=== PATIENT | female | born 1990 | race Caucasian/White ===

== ENCOUNTER 2019-06-15 15:30 | Inpatient (IN) | payer OTHER ==
[~2019-06-15] VITALS: Ht 162.6 cm; Wt 66.0 kg
[2019-06-15 13:26] LABS: BASOPHILS % (AUTO) 0.3 % (0.0-5.0); EOSINOPHILS % (AUTO) 1.5 % (0.0-8.0); HEMATOCRIT 36.9 % (36-48); LYMPHOCYTES % (AUTO) 27.1 % (21.0-51.0); MEAN CORPUSCULAR HGB CONC 33.7 g/dL (32.0-36.0); MEAN CORPUSCULAR VOLUME 85.9 fL (79-99); MONOCYTES % (AUTO) 5.1 % (3.0-13.0); NUCLEATED RED BLOOD CELLS 0.1 % (0.0-0.19); PLATELET COUNT (AUTO) 204 K/uL (130-400); RED CELL DISTRIBUTION WIDTH 13.3 % (11.0-15.5); WHITE BLOOD COUNT (AUTO) 5.1 K/uL (4.8-10.8)
[2019-06-15 13:44] LABS: POTASSIUM 4.2 mmol/L (3.5-5.1)
[2019-06-15 13:58] VITALS: BP 100/69
[~2019-06-15 15:30] MED LIST: HYDR-3422 PO; SERT25TA PO; TRAZ-185 PO
[2019-06-18] VITALS (22 sets, daily range): BP systolic 103–123; BP diastolic 46–71
[2019-06-18] MEDS: CEFAZOLIN SODIUM 1 GM VIAL IVP SCH ×2 (06:00→07:20)
[2019-06-18] MEDS ORDERED: LACTATED RINGERS 1000ML 1,000 ML IV ONE (06:25)
[2019-06-18] MEDS ORDERED: DURAMORPH PF1 MG/ML 10ML AMP IV ONE (06:40)
[2019-06-18] MEDS ORDERED: THROMBIN-JMI 20000 UNIT KIT TP ONE (06:41)
[2019-06-18] MEDS ORDERED: BACITRACIN 50,000 UNIT VIAL ONE (06:41)
[2019-06-18] MEDS ORDERED: LIDOCAINE PF 2% 5ML ABBOJECT ONE (06:45)
[2019-06-18] MEDS ORDERED: PROPOFOL 10 MG/ML 20ML VIAL IV ONE (06:45)
[2019-06-18] MEDS ORDERED: DEXAMETHASONE SOD PHOSPHATE 10MG/ML 1ML VIAL ONE ×2 (06:45→06:49)
[2019-06-18] MEDS ORDERED: SUCCINYLCHOLINE 200MG/10ML SYR ONE (06:45)
[2019-06-18] MEDS ORDERED: GLYCOPYRROLATE 1 MG/5 ML SYRINGE ONE (06:46)
[2019-06-18] MEDS ORDERED: ROCURONIUM 10MG/1ML SYR 10 MG/ML ML ONE (06:46)
[2019-06-18] MEDS ORDERED: ONDANSETRON HCL 4 MG/2 ML VIAL ONE (06:46)
[2019-06-18] MEDS ORDERED: MIDAZOLAM HCL 1 MG/ML 2ML VIAL ONE ×2 (06:46→06:47)
[2019-06-18] MEDS ORDERED: NEOSTIGMINE 5MG/5ML SYR IV ONE (06:46)
[2019-06-18] MEDS ORDERED: FENTANYL CITRATE PF 50 MCG/1 ML 2ML VIAL ONE ×2 (06:47→08:00)
[2019-06-18] MEDS: BUPIVACAINE/EPI/PF 0.25% 30ML VIAL IJ SCH ×2 (07:00→09:33)
[2019-06-18] MEDS ORDERED: LACTATED RINGERS 1000ML 1,000 ML IV SCH (09:48)
[2019-06-18] MEDS ORDERED: HYDROXYZINE HCL 50 MG PO PRN (10:00)
[2019-06-18] MEDS ORDERED: HYDROCODONE/ACETAMINOPHEN 5/325 MG TAB PO PRN (10:00)
[2019-06-18] MEDS ORDERED: PROMETHAZINE HCL 25 MG/ML 1ML AMPULE IM PRN (10:00)
[2019-06-18] MEDS ORDERED: SODIUM CHLORIDE 0.9% 10 ML VIAL IVP PRN (10:00)
[2019-06-18] MEDS ORDERED: CEFAZOLIN SODIUM 1 GM VIAL IVP SCH (10:00)
[2019-06-18] MEDS ORDERED: MORPHINE SULFATE 2 MG/ML 1ML SYG IVP PRN (10:00)
[2019-06-18] MEDS: DEXAMETHASONE SOD PHOSPHATE 4 MG/ML 1ML VIAL IVP SCH ×3 (10:00→21:22)
[2019-06-18] MEDS ORDERED: MEPERIDINE-PF 25 MG/ML SYG ONE (10:19)
[2019-06-18] MEDS ORDERED: KETOROLAC TROMETHAMINE 30MG/ML ONE (10:26)
[2019-06-18] MEDS ORDERED: TRAZODONE HCL 50 MG TAB PO SCH (21:00)
[2019-06-18] MEDS ORDERED: SERTRALINE HCL 50 MG TABLET PO SCH (21:00)
[2019-06-19 03:57] VITALS: BP 110/66
[2019-06-19] MEDS: DEXAMETHASONE SOD PHOSPHATE 4 MG/ML 1ML VIAL IVP SCH (04:05)
[2019-06-19 08:01] VITALS: BP 102/52
[2019-06-19] MEDS ORDERED: KETOROLAC TROMETHAMINE 30MG/ML ONE (09:07)
[2019-06-19] MEDS ORDERED: KETOROLAC TROMETHAMINE 30MG/ML IV SCH (09:15)
--- NOTE | 2019-06-19 11:15 | NUR ---
PATIENT WAS D/C WITH TEACH BACK SUCCESSFULLY IV REMOVED CATHETER TIP INTACT INCISION CHANGED, NO SIGNS OF INFECTION NOR BLEEDING NOTED INCISION CLEAN AND DRY PT DENIES SOB OR CHEST PAIN RX GIVEN AND FU APPT ALONG WITH STAPPLE REMOVER AND ENTIRE D/C SUMMARY FAMILY AT BED SIDE
== END 2019-06-19 11:30 | disposition home or self-care (01) | DRG 520 ==
LOC: EDSTATUS 15:30 → DAHIP 06-18 05:57 → 4AH 06-18 10:26
PROVIDERS: ADMIT Neurological Surgery; ATTEND Neurological Surgery
PROC: BR1B1ZZ Fluoroscopy of Lumbosacral Joint using Low Osmolar Contrast (ICD-10-PCS; 2019-06-18)
PROC: 01NB0ZZ Release Lumbar Nerve, Open Approach (ICD-10-PCS; principal; 2019-06-18 07:58)
PROC: 0SB40ZZ Excision of Lumbosacral Disc, Open Approach (ICD-10-PCS; 2019-06-18 07:58)
PROC: 01NR0ZZ Release Sacral Nerve, Open Approach (ICD-10-PCS; 2019-06-18 07:58)
PROC: 4A11X4G Monitoring of Peripheral Nervous Electrical Activity, Intraoperative, External Approach (ICD-10-PCS; 2019-06-18 07:58)
DX: M51.17 Intervertebral disc disorders with radiculopathy, lumbosacral region (principal); F41.9 Anxiety disorder, unspecified
CPT/HCPCS: 36415; 71045; 72020; 80051; 84703; 85025; 93005; A4344; G0378; J0330; J0690; J1100; J1885; J2001; J2175; J2250; J2274; J2405; J2704; J2710; J3010; J3490; J7120

== ENCOUNTER → 2021-06-05 | Outpatient (CLI) | payer OTHER ==
[2021-06-05 12:42] LABS: BASOPHILS % (AUTO) 0.3 % (0.0-5.0); EOSINOPHILS % (AUTO) 1.1 % (0.0-8.0); HEMATOCRIT 36.8 % (36-48); LYMPHOCYTES % (AUTO) 37.8 % (21.0-51.0); MEAN CORPUSCULAR HEMOGLOBIN 27.3 pg (27.0-33.0); MEAN CORPUSCULAR HGB CONC 31.8 g/dL (32.0-36.0); MEAN CORPUSCULAR VOLUME 85.8 fL (79-99); MONOCYTES % (AUTO) 5.4 % (3.0-13.0); NEUTROPHILS % (AUTO) 55.2 % (40.0-77.0); PLATELET COUNT (AUTO) 254 K/uL (130-400); RED BLOOD CELL COUNT(AUTO) 4.29 MIL/uL (4.00-5.50); RED CELL DISTRIBUTION WIDTH 13.2 % (11.0-15.5); WHITE BLOOD COUNT (AUTO) 6.3 K/uL (4.8-10.8)
[2021-06-05 12:55] LABS: APPEARANCE,URINE Clear (CLEAR); BILIRUBIN,URINE Negative (NEGATIVE); COLOR,URINE Yellow (YELLOW); GLUCOSE, URINE (UA) Negative (NEGATIVE); KETONES,URINE Negative (NEGATIVE); LEUKOCYTE ESTERASE ,URINE Negative (NEGATIVE); NITRATE,URINE Negative (NEGATIVE); OCCULT BLOOD,URINE Negative (NEGATIVE); PH,URINE 5.5 (5.0-8.0); PROTEIN,URINE Negative (NEGATIVE); UROBILINOGEN,URINE 0.2 mg/dL (0.2-1.0)
[2021-06-05 13:02] LABS: ALBUMIN 3.8 g/dL (3.5-5.0); BILIRUBIN,TOTAL 0.3 mg/dL (0.2-1.0); CREATININE 0.6 mg/dL (0.5-1.5); POTASSIUM 4.1 mmol/L (3.5-5.1); TOTAL PROTEIN, SERUM 8.4 g/dL (6.0-8.3)
[2021-06-05 13:43] LABS: ERYTHROCYTE SEDIMENTATION RATE 32 MM/HR (0-20)
== END | disposition home or self-care (01) ==
LOC: RAH 11:41
PROVIDERS: ATTEND Internal Medicine
DX: K52.9 Noninfective gastroenteritis and colitis, unspecified (principal); K57.92 Diverticulitis of intestine, part unspecified, without perforation or abscess without bleeding
CPT/HCPCS: 36415; 74176; 80053; 81003; 85025; 85651; 86140

== ENCOUNTER → 2021-08-08 | Outpatient (CLI) | payer OTHER | END | disposition home or self-care (01) | LOC: LAB 07:50 | PROVIDERS: ATTEND Internal Medicine | DX: Z34.90 Encounter for supervision of normal pregnancy, unspecified, unspecified trimester (principal); F41.0 Panic disorder [episodic paroxysmal anxiety] | CPT/HCPCS: 36415; 84703 ==

== ENCOUNTER → 2021-08-30 | Outpatient (CLI) | payer OTHER ==
[2021-08-30 10:16] LABS: BASOPHILS % (AUTO) 0.4 % (0.0-5.0); EOSINOPHILS % (AUTO) 0.6 % (0.0-8.0); HEMATOCRIT 35.4 % (36-48); LYMPHOCYTES % (AUTO) 25.5 % (21.0-51.0); MEAN CORPUSCULAR HEMOGLOBIN 27.3 pg (27.0-33.0); MEAN CORPUSCULAR HGB CONC 33.3 g/dL (32.0-36.0); MEAN CORPUSCULAR VOLUME 81.9 fL (79-99); MONOCYTES % (AUTO) 5.1 % (3.0-13.0); NEUTROPHILS % (AUTO) 68.2 % (40.0-77.0); PLATELET COUNT (AUTO) 238 K/uL (130-400); RED BLOOD CELL COUNT(AUTO) 4.32 MIL/uL (4.00-5.50); RED CELL DISTRIBUTION WIDTH 14.1 % (11.0-15.5); WHITE BLOOD COUNT (AUTO) 5.1 K/uL (4.8-10.8)
[2021-08-30 10:31] LABS: APPEARANCE,URINE Cloudy (CLEAR); BILIRUBIN,URINE Negative (NEGATIVE); COLOR,URINE Yellow (YELLOW); GLUCOSE, URINE (UA) Negative (NEGATIVE); KETONES,URINE Trace mg/dL (NEGATIVE); LEUKOCYTE ESTERASE ,URINE Small (NEGATIVE); NITRATE,URINE Negative (NEGATIVE); OCCULT BLOOD,URINE Negative (NEGATIVE); PH,URINE 7.5 (5.0-8.0); PROTEIN,URINE Trace mg/dL (NEGATIVE)
[2021-08-30 10:45] LABS: BACTERIA,URINE Many /HPF (None Seen); RBC,URINE 0-1 /HPF (0-1); SQUAMOUS EPITHELIAL CELL,UR Moderate /HPF (0-2)
[2021-08-30 12:52] LABS: RAPID PLASMA REAGIN NONREACTIVE (NONREACTIVE)
[2021-08-31 07:14] LABS: HEPATITIS Bs ANTIGEN SCREEN P Negative (Negative)
== END | disposition home or self-care (01) ==
LOC: LAB 08:28
PROVIDERS: ATTEND Obstetrics & Gynecology
DX: Z32.01 Encounter for pregnancy test, result positive (principal)
CPT/HCPCS: 36415; 81001; 85025; 86592; 86701; 86762; 86900; 86901; 87088; 87340; 87390

== ENCOUNTER 2022-04-03 05:54 | Inpatient (IN) | payer MEDICAID, OTHER ==
[~2022-04-03] VITALS: Ht 160 cm; Wt 87.5 kg
[2022-04-03] MEDS ORDERED: LACTATED RINGERS 1000ML 1,000 ML IV PRN (06:30)
[2022-04-03 06:31] LABS: APPEARANCE,URINE CLEAR (CLEAR); BILIRUBIN,URINE NEGATIVE (NEGATIVE); COLOR,URINE YELLOW (YELLOW); GLUCOSE, URINE (UA) NEGATIVE (NEGATIVE); KETONES,URINE NEGATIVE (NEGATIVE); LEUKOCYTE ESTERASE ,URINE TRACE (NEGATIVE); NITRATE,URINE NEGATIVE (NEGATIVE); OCCULT BLOOD,URINE SMALL (NEGATIVE); PROTEIN,URINE NEGATIVE (NEGATIVE); UROBILINOGEN,URINE 0.2 mg/dL (0.2-1.0)
[2022-04-03] MEDS ORDERED: PREN-64 PO (06:52)
[2022-04-03] MEDS ORDERED: CEFAZOLIN SODIUM 1 GM VIAL IVP PRN (07:00)
[2022-04-03] MEDS ORDERED: CALDOLOR 800MG+NS 250ML 250 ML IV PRN (07:00)
[2022-04-03 07:07] LABS: HEMATOCRIT 32.1 % (36-48); MEAN CORPUSCULAR HEMOGLOBIN 27.6 pg (27.0-33.0); MEAN CORPUSCULAR HGB CONC 33.6 g/dL (32.0-36.0); MEAN CORPUSCULAR VOLUME 82.1 fL (79-99); RED BLOOD CELL COUNT(AUTO) 3.91 MIL/uL (4.00-5.50); RED CELL DISTRIBUTION WIDTH 13.7 % (11.0-15.5); WHITE BLOOD COUNT (AUTO) 8.6 K/uL (4.8-10.8)
[2022-04-03] MEDS ORDERED: OXYTOCIN-LR 20 UNITS/1000 ML 1,000 ML IV ONE (07:32)
[2022-04-03 07:44] LABS: BACTERIA,URINE Few /HPF (None Seen); RBC,URINE 0-1 /HPF (0-1); SQUAMOUS EPITHELIAL CELL,UR Few /HPF (0-2)
[2022-04-03] MEDS ORDERED: MORPHINE PF 100MG/10ML AMP IV ONE (08:14)
[2022-04-03] MEDS ORDERED: FENTANYL CITRATE PF 50 MCG/1 ML 2ML VIAL ONE (08:14)
[2022-04-03 08:25] LABS: RAPID PLASMA REAGIN NONREACTIVE (NONREACTIVE)
[2022-04-03] MEDS ORDERED: OXYTOCIN 10 USP UNITS/ML ONE (08:36)
[2022-04-03] MEDS ORDERED: MIDAZOLAM HCL 1 MG/ML 2ML VIAL ONE (08:54)
[2022-04-03] MEDS ORDERED: ONDANSETRON 4MG INJ ONE (08:55)
[2022-04-03] MEDS ORDERED: LORATADINE 10 MG TABLET PO PRN (09:30)
[2022-04-03] MEDS ORDERED: ONDANSETRON 4MG INJ IVP PRN (10:00)
[2022-04-03] MEDS ORDERED: DiphenhydrAMINE HCL 50 MG/ML VIAL IVP PRN (10:00)
[2022-04-03] MEDS ORDERED: NALOXONE HCL 0.4 MG/1 ML ML IVP PRN (10:00)
[2022-04-03] MEDS ORDERED: EPHEDRINE SULFATE 50 MG/ML AMPULE IVP PRN (10:00)
[2022-04-03 11:26] VITALS: BP 116/74
[2022-04-03] MEDS ORDERED: OXYTOCIN-LR 20 UNITS/1000 ML 1,000 ML IV PRN (11:30)
[2022-04-03] MEDS ORDERED: PROMETHAZINE HCL 25 MG/ML 1ML AMPULE IM PRN (11:30)
[2022-04-03] MEDS ORDERED: 0.9%NACL 10ML VIAL IVP PRN (11:30)
[2022-04-03] MEDS ORDERED: MEPERIDINE-PF 75 MG/ML SYG IM PRN (11:30)
[2022-04-03 13:25] LABS: AMPHET/METH SCREEN,URINE NEGATIVE (NEGATIVE); BARBITURATE SCREEN, URINE NEGATIVE (NEGATIVE); BENZODIAZEPINES SCREEN,URINE NEGATIVE (NEGATIVE); CANNABINOID SCREEN,URINE NEGATIVE (NEGATIVE); COCAINE SCREEN,URINE NEGATIVE (NEGATIVE); PHENCYCLIDINE SCREEN,URINE NEGATIVE (NEGATIVE)
[2022-04-03 16:30] VITALS: BP 113/70
[2022-04-03] MEDS: DEXTROSE 5 %-0.45 % NACL 1,000 ML IV PRN (17:02)
[2022-04-03] MEDS: CEFAZOLIN SODIUM 1 GM VIAL IVP SCH (17:02)
[2022-04-03 19:20] VITALS: BP 121/70
[2022-04-03] MEDS ORDERED: CALDOLOR 800MG+NS 250ML 250 ML IV SCH (19:30)
[2022-04-04] VITALS (7 sets, daily range): BP systolic 105–138; BP diastolic 59–99
[2022-04-04] MEDS ORDERED: ACETAMINOPHEN WITH CODEINE 1 TAB TAB PO PRN
[2022-04-04] MEDS ORDERED: BISACODYL 10 MG SUPP.RECT RC PRN
[2022-04-04] MEDS ORDERED: HYDROCODONE/ACETAMINOPHEN 5/325 MG TAB PO PRN
[2022-04-04] MEDS ORDERED: LANOLIN 30GM OINTMENT TP PRN
[2022-04-04] MEDS: CEFAZOLIN SODIUM 1 GM VIAL IVP SCH (00:08)
[2022-04-04] MEDS: DEXTROSE 5 %-0.45 % NACL 1,000 ML IV PRN ×2 (00:08→06:42)
[2022-04-04] MEDS: ACETAMINOPHEN 500 MG TABLET PO PRN ×3 (00:39→17:45)
[2022-04-04] MEDS: IBUPROFEN 600 MG TABLET PO PRN ×3 (05:20→21:21)
[2022-04-04 06:16] LABS: HEMATOCRIT 22.9 % (36-48); MEAN CORPUSCULAR HEMOGLOBIN 27.4 pg (27.0-33.0); MEAN CORPUSCULAR HGB CONC 33.2 g/dL (32.0-36.0); MEAN CORPUSCULAR VOLUME 82.7 fL (79-99); RED BLOOD CELL COUNT(AUTO) 2.77 MIL/uL (4.00-5.50); RED CELL DISTRIBUTION WIDTH 13.8 % (11.0-15.5); WHITE BLOOD COUNT (AUTO) 9.8 K/uL (4.8-10.8)
[2022-04-04] MEDS ORDERED: DIPH,PERTUSS(ACELL),TET VAC/PF 0.5 ML VIAL IM ONE (07:00)
[2022-04-04 07:17] LABS: HEPATITIS Bs ANTIGEN SCREEN P Negative (Negative)
[2022-04-04] MEDS: SIMETHICONE 80 MG TAB.CHEW PO PRN ×2 (08:51→21:17)
[2022-04-04] MEDS: DOCUSATE SODIUM 100 MG CAP PO SCH ×2 (08:51→21:17)
[2022-04-05] MEDS: IBUPROFEN 600 MG TABLET PO PRN ×2 (03:45→09:39)
[2022-04-05 03:46] VITALS: BP 125/88
[2022-04-05 07:35] VITALS: BP 125/82
[2022-04-05] MEDS ORDERED: ACET-2079 PO (09:09)
[2022-04-05] MEDS ORDERED: FERR-72 PO (09:10)
[2022-04-05] MEDS: SIMETHICONE 80 MG TAB.CHEW PO PRN (09:39)
[2022-04-05] MEDS: DOCUSATE SODIUM 100 MG CAP PO SCH (09:39)
[2022-04-05 21:08] LABS: OPIATES SCREEN URINE Negative ng/mL (Cutoff=300)
== END 2022-04-05 11:15 | disposition home or self-care (01) | DRG 540 ==
LOC: EDH 05:54 → LDH 05:55 → OBSVTOIN 05:55 → WSH 11:00
PROVIDERS: ADMIT Obstetrics & Gynecology; ATTEND Obstetrics & Gynecology
PROC: 10D00Z1 Extraction of Products of Conception, Low, Open Approach (ICD-10-PCS; principal; 2022-04-03 08:32)
DX: O32.9XX0 Maternal care for malpresentation of fetus, unspecified, not applicable or unspecified (principal); O42.92 Full-term premature rupture of membranes, unspecified as to length of time between rupture and onset of labor; Z37.0 Single live birth; Z3A.38 38 weeks gestation of pregnancy
CPT/HCPCS: 36415; 59510; 76815; 80305; 81001; 85027; 86592; 86701; 86850; 86900; 86901; 87340; 87390; 90715; A4344; G0378; J0690; J1741; J2250; J2274; J2405; J2590; J3010

== ENCOUNTER → 2022-10-24 | Outpatient (CLI) | payer MEDICAID ==
[~2022-10-24] MED LIST changes: +ACET-2079 PO; +CYCL-309 PO; +FERR-72 PO; +PREN-64 PO
== END | disposition home or self-care (01) ==
LOC: RAH 11:42
PROVIDERS: ATTEND Internal Medicine
DX: M48.061 Spinal stenosis, lumbar region without neurogenic claudication (principal); M51.26 Other intervertebral disc displacement, lumbar region; G95.9 Disease of spinal cord, unspecified; R29.898 Other symptoms and signs involving the musculoskeletal system
CPT/HCPCS: 72100

== ENCOUNTER 2022-10-26 00:24 | Emergency (ER) | payer MEDICAID ==
[~2022-10-26] VITALS: Ht 160 cm; Wt 74.4 kg
[~2022-10-26 00:24] MED LIST changes: -CYCL-309 PO
[2022-10-26] MEDS ORDERED: ORPHENADRINE CITRATE 30 MG/ML ML IVP ONE (01:30)
[2022-10-26] MEDS ORDERED: KETOROLAC 30MG VIAL (30MG/ML) IVP ONE (01:30)
[2022-10-26] MEDS ORDERED: CYCL-309 PO (03:45)
[2022-10-26 03:57] VITALS: BP 123/74
== END 2022-10-26 03:58 | disposition home or self-care (01) ==
LOC: EDH 00:24
DX: M54.16 Radiculopathy, lumbar region (principal); E03.9 Hypothyroidism, unspecified; Z79.899 Other long term (current) drug therapy; Z79.1 Long term (current) use of non-steroidal anti-inflammatories (NSAID)
CPT/HCPCS: 99285; 96374; 72131; 96375; 81025; J1885; J2360

== ENCOUNTER → 2022-12-07 | Outpatient (CLI) | payer MEDICAID ==
[~2022-12-07] MED LIST changes: +CYCL-309 PO; +GADOTERATE MEGLUMINE 10 MMOL/20 ML VIAL IV ONE
== END | disposition home or self-care (01) ==
LOC: RAH 08:37
PROVIDERS: ATTEND Internal Medicine
DX: M51.27 Other intervertebral disc displacement, lumbosacral region (principal); M48.07 Spinal stenosis, lumbosacral region; G83.4 Cauda equina syndrome; G95.9 Disease of spinal cord, unspecified; Z98.890 Other specified postprocedural states
CPT/HCPCS: 72158; A9575